=== PATIENT | male | born 1970 | race Caucasian/White ===

== ENCOUNTER 2022-03-04 11:47 | Outpatient (CLI) | payer OTHER, SELFPAY ==
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
== END 2022-03-04 11:48 | disposition home or self-care (01) ==
LOC: ANHIMG 11:55
PROVIDERS: PCP Family Medicine; Visit Provider Physician Assistant
DX: M79.642 Pain in left hand (principal); M79.641 Pain in right hand; R07.81 Pleurodynia; M54.9 Dorsalgia, unspecified; M25.579 Pain in unspecified ankle and joints of unspecified foot; M25.569 Pain in unspecified knee; M17.11 Unilateral primary osteoarthritis, right knee; M76.51 Patellar tendinitis, right knee; M41.84 Other forms of scoliosis, thoracic region; M19.041 Primary osteoarthritis, right hand; M79.89 Other specified soft tissue disorders; M77.32 Calcaneal spur, left foot; M77.31 Calcaneal spur, right foot
CPT/HCPCS: 71046; 71110; 72070; 73120; 73560; 73590; 73610; 73630

== ENCOUNTER → 2022-03-19 14:15 | Outpatient (CLI) | payer OTHER, SELFPAY ==
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
== END ==
PROVIDERS: PCP Family Medicine; Visit Provider Orthopaedic Surgery
DX: M25.561 Pain in right knee (principal); M17.11 Unilateral primary osteoarthritis, right knee; M76.9 Unspecified enthesopathy, lower limb, excluding foot
CPT/HCPCS: 73721